=== PATIENT | female | born 1930 | race Hispanic/Latino ===

== ENCOUNTER 2017-11-24 16:23 | Emergency (ER) | payer OTHER ==
[2017-11-24 17:43] LABS: Bicarbonate 30 mEq/L (21-31); Glucose Level 190 mg/dL (65-120); Sodium Level 132 mEq/L (135-145)
[2017-11-24 17:48] LABS: Absolute Lymphocytes (CBC) 1.7 K/uL (0.7-4.9); Absolute Monocytes 0.6 K/uL (0.1-1.3); Absolute Neutrophil 4.4 K/uL (1.8-8.0); Basophils % 0.7 % (0-1.3); Eosinophils % 2.2 % (0-4.4); Lymphocytes % 24.7 % (15.3-44.8); MCH 28.1 pg (27.0-35.0); MCV 87.6 fL (80-100); MPV 8.5 fL (7.6-11.3); Monocytes % 8.3 % (3.3-12.3); RBC Red Blood Cell Count 3.99 M/uL (3.86-4.86)
[2017-11-24 17:49] LABS: ALT/SGPT 12 IU/L (10-60); AST/SGOT 16 IU/L (10-42); Albumin 3.9 g/dL (3.2-5.5); Alkaline Phosphatase 81 IU/L (42-121); BUN Blood Urea Nitrogen 12 mg/dL (6-20); Bilirubin Direct 0.1 mg/dL (0-0.2); Bilirubin Total 0.6 mg/dL (0.3-1.2); Protein, Total 8.1 g/dL (6.0-8.3)
--- NOTE | 2017-11-24 18:42 | RAD REPORT ---
EXAM DESCRIPTION: JANNETExtreaaron Venous Uni Ltd11/24/2017 6:21 pm CLINICAL HISTORY: left leg pain and swelling. COMPARISON: None. FINDINGS: Left common femoral, superficial femoral, popliteal and posterior tibial veins are compre ssible and demonstrate augmentation. Doppler demonstrates good flow. A Riley's cyst measures 3.6 x 1.2 x 2.6 centimeters IMPRESSION: No evidence of deep venous thrombosis involving the left lower extremity. A Riley's cyst measures 3.6 x 1.2 x 2.6 centimeters
--- NOTE | 2017-11-24 19:42 | RAD REPORT ---
EXAM DESCRIPTION: Lindsey Low Left11/24/2017 6:08 pm CLINICAL HISTORY: Left leg pain and swelling FINDINGS: No fracture is seen. No bony destructive lesion is seen. Diffuse edema is present within the subcutaneous tissues
--- NOTE | 2017-11-24 19:44 | RAD REPORT ---
EXAM DESCRIPTION: RAD - Foot Left 3 View - 11/24/2017 6:12 pm CLINICAL HISTORY: Left Foot pain FINDINGS: No fracture or dislocation is seen. No bony destructive lesion is seen. Diffuse edema is present within the subcutaneous tissues. A large plantar calcaneal spur is present. Vascular calcifications are noted.
--- NOTE | 2017-11-24 20:08 | ER ---
Nurse's Notes [facility] Name: Mariah Mora Age: 87 yrs Sex: Female : 1930 Arrival Date: 11/24/2017 Time: 16:27 Bed 16 Private MD: Out, [facility] Diagnosis: Cellulitis of left lower limb Presentation: 11/24 16:31 Presenting complaint: Patient states: Left lower leg swelling and redness that started aj 2 weeks ago. Seen by PCP yesterday and DX with staph infection and started on ABX. Not improved. Transition of care: patient was not received from another setting of care. Onset of symptoms was November 13, 2017. Risk Assessment: Do you want to hurt yourself or someone else? Patient reports no desire to harm self or others. Care prior to arrival: None. 16:31 Method Of Arrival: Ambulatory aj 16:31 Acuity: ANTHONY 3 aj 19:10 Initial Sepsis Screen: Does the patient meet any 2 criteria? No. Patient's initial tl2 sepsis screen is negative. Does the patient have a suspected source of infection? No. Patient's initial sepsis screen is negative. Triage Assessment: 16:35 General: Appears in no apparent distress. comfortable, Behavior is calm, cooperative, aj appropriate for age. Pain: Complains of pain in left leg. Neuro: Level of Consciousness is awake, alert, obeys commands, Oriented to person, place, time, situation, Appropriate for age. Respiratory: Airway is patent Respiratory effort is even, unlabored, Respiratory pattern is regular, symmetrical. Derm: Skin is intact, is healthy with good turgor, Skin is pink, warm \T\ dry. normal. 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 - Social history:: Smoking status: Patient/guardian denies using tobacco. - Ebola Screening: : Patient negative for fever greater than or equal to 101.5 degrees Fahrenheit, and additional compatible Ebola Virus Disease symptoms Patient denies exposure to infectious person Patient denies travel to an Ebola-affected area in the 21 days before illness onset No symptoms or risks identified at this time. Screenin:45 Abuse screen: Denies threats or abuse. Denies injuries from another. Nutritional ch screening: No deficits noted. Tuberculosis screening: No symptoms or risk factors identified. Fall Risk None identified. Assessment: 17:50 Reassessment: Patient appears in no apparent distress at this time. Patient and/or ch family updated on plan of care and expected duration. Pain level reassessed. Patient is alert, oriented x 3, equal unlabored respirations, skin warm/dry/pink. General: Appears in no apparent distress. uncomfortable, Behavior is calm, cooperative, appropriate for age. Pain: Complains of pain in lateral aspect of left calf, left lateral ankle, lateral aspect of left foot, left calf, left Achilles, left heel, medial aspect of left calf, left medial ankle, medial aspect of left foot, left [place], anterior aspect of left ankle and dorsum of left foot Pain currently is 7 out of 10 on a pain scale. Pain began weeks ago. Neuro: No deficits noted. Respiratory: Airway is patent Respiratory effort is even, unlabored, Breath sounds are clear bilaterally. 17:50 GI: No signs and/or symptoms were reported involving the gastrointestinal system. Derm: ch Skin is pink, warm \T\ dry. Rash noted that is pt L lower leg pt has redness and +3 pitting edema, heat to area. pt redness and swelling extends almost to the knee. 18:35 Reassessment: Patient appears in no apparent distress at this time. Patient and/or ch family updated on plan of care and expected duration. Pain level reassessed. Patient is alert, oriented x 3, equal unlabored respirations, skin warm/dry/pink. 19:10 Reassessment: Patient appears in no apparent distress at this time. General: Appears in tl2 no apparent distress. uncomfortable, Behavior is calm, cooperative, appropriate for age. Pain: Complains of pain in left [place] and left calf. Neuro: Level of Consciousness is awake, alert, obeys commands, Oriented to person, place, time, situation. Cardiovascular: Denies chest pain. Cardiovascular: Edema is 3+ to left midcalf pitting to left midcalf. Respiratory: Airway is patent Respiratory effort is even, unlabored, Respiratory pattern is regular, symmetrical. GI: No signs and/or symptoms were reported involving the gastrointestinal system. Derm: Skin is pink, warm \T\ dry. Rash noted that is red. 21:04 Reassessment: Patient appears in no apparent distress at this time. Patient and/or tl2 family updated on plan of care and expected duration. Pain level reassessed. Patient is alert, oriented x 3, equal unlabored respirations, skin warm/dry/pink. Patient is alert/active/playful, equal unlabored respirations, skin warm/dry/pink. Pt verbalized understanding of discharge instructions and need to continue prescribed antibiotics. Vital Signs: 16:35 BP 147 / 59; Pulse 82; Resp 20; Temp 98.5; Pulse Ox 99% on R/A; Weight 69.85 kg; Height aj 5 ft. 3 in. (160.02 cm); 17:45 BP 156 / 62; Pulse 86; Resp 20; Pulse Ox 98% on R/A; Pain 7/10; ch 19:30 BP 178 / 58; Pulse 70; Resp 18; Pulse Ox 98% on R/A; tl2 21:01 BP 173 / 56; Pulse 76; Resp 18; Temp 98(O); Pulse Ox 98% on R/A; tl2 16:35 Body Mass Index 27.28 (69.85 kg, 160.02 cm) ED Course: 16:27 Patient arrived in ED. sb2 16:27 Out, [facility] is Private Physician. sb2 16:32 Triage completed. aj 16:35 Arm band placed on right wrist. Patient placed in an exam room. aj 16:50 Mynor Ramos NP is PHCP. pm1 16:50 Cal Dailey MD is Attending Physician. pm1 17:04 Terese Ascencio, DIANE is Primary Nurse. 17:24 Initial lab(s) drawn, by nj, sent to lab. Inserted saline lock: 22 gauge in left mh5 antecubital area, using aseptic technique. Blood collected. 17:24 Basic Metabolic Panel Sent. 5 17:24 CBC with Diff Sent. 5 17:24 Hepatic Function Sent. [facility] 17:45 No apparent distress. Resting quietly. 17:45 Patient has correct armband on for positive identification. Bed in low position. Call light in reach. Side rails up X 1. Adult w/ patient. Pulse ox on. NIBP on. Warm blanket given. 17:45 No provider procedures requiring assistance completed. 18:06 X-ray completed. Portable x-ray completed in exam room. Patient tolerated procedure bb2 well. 18:06 Tib Fib Left XRAY In Process Unspecified. EDMS 18:06 Foot Left 3 View XRAY In Process Unspecified. EDMS 18:21 Extremity Venous Uni Ltd US In Process Unspecified. EDMS 19:40 Report given to Sherin. 21:04 IV discontinued, intact, bleeding controlled, No redness/swelling at site. Pressure tl2 dressing applied. Administered Medications: No medications were administered Outcome: 20:07 Discharge ordered by MD. pm1 21:04 Discharged to home ambulatory, with family. tl2 21:04 Condition: stable 21:04 Discharge instructions given to patient, family, Instructed on discharge instructions, follow up and referral plans. medication usage, Demonstrated understanding of instructions, follow-up care, medications. 21:05 Patient left the ED. tl2 Signatures: Dispatcher [employer] Terese Mars, RN Estrella Woods ch, RN RN aj Marinas, Patrick, ANGI CRICKET COACH pm1 Sherin Leonardo RN RN 2 Heidi Thompson 5 Sarah Grimes 2 Josiane Cueto 2
--- NOTE | 2017-11-24 20:08 | EDPHYS ---
Physician Documentation [facility] Name: Mariah Mora Age: 87 yrs Sex: Female : 1930 Arrival Date: 11/24/2017 Time: 16:27 Bed 16 Private MD: Out, [facility] ED Physician Cal Dailey HPI: 11/24 17:30 This 87 yrs old Female presents to ER via Ambulatory with complaints of Leg pm1 Swelling. 17:30 The patient presents with cellulitis of the left ankle and [place]. Description: raised. pm1 Onset: The symptoms/episode began/occurred 2 week(s) ago. Possible cause(s): unknown. Associated signs and symptoms: Pertinent negatives: discharge, drainage, fever. Modifying factors: the symptoms are alleviated by nothing, the symptoms are aggravated by touching. Severity of symptoms: in the emergency department the symptoms are unchanged. Patient seen by her doctor yesterday and given a prescription bactrim and clindamycin for cellulitis. Family member concerned that the cellulitis is not better after starting the antibiotics yesterday. 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 - Social history:: Smoking status: Patient/guardian denies using tobacco. - Ebola Screening: : Patient negative for fever greater than or equal to 101.5 degrees Fahrenheit, and additional compatible Ebola Virus Disease symptoms Patient denies exposure to infectious person Patient denies travel to an Ebola-affected area in the 21 days before illness onset No symptoms or risks identified at this time. ROS: 17:30 Constitutional: Negative for fever, chills, and weight loss, Eyes: Negative for injury, pm1 pain, redness, and discharge, ENT: Negative for injury, pain, and discharge, Neck: Negative for injury, pain, and swelling, Cardiovascular: Negative for chest pain, palpitations, and edema, Respiratory: Negative for shortness of breath, cough, wheezing, and pleuritic chest pain, Abdomen/GI: Negative for abdominal pain, nausea, vomiting, diarrhea, and constipation, Back: Negative for injury and pain, : Negative for injury, bleeding, discharge, and swelling. 17:30 MS/Extremity: Negative for injury and deformity. 17:30 Skin: Positive for cellulitis, of the left [place] and left ankle. Exam: 17:30 Constitutional: This is a well developed, well nourished patient who is awake, alert, pm1 and in no acute distress. Head/Face: Normocephalic, atraumatic. Eyes: Pupils equal round and reactive to light, extra-ocular motions intact. Lids and lashes normal. Conjunctiva and sclera are non-icteric and not injected. Cornea within normal limits. Periorbital areas with no swelling, redness, or edema. ENT: Nares patent. No nasal discharge, no septal abnormalities noted. Tympanic membranes are normal and external auditory canals are clear. Oropharynx with no redness, swelling, or masses, exudates, or evidence of obstruction, uvula midline. Mucous membranes moist. Neck: Trachea midline, no thyromegaly or masses palpated, and no cervical lymphadenopathy. Supple, full range of motion without nuchal rigidity, or vertebral point tenderness. No Meningismus. Chest/axilla: Normal chest wall appearance and motion. Nontender with no deformity. No lesions are appreciated. Cardiovascular: Regular rate and rhythm with a normal S1 and S2. No gallops, murmurs, or rubs. No pulse deficits. Respiratory: Lungs have equal breath sounds bilaterally, clear to auscultation and percussion. No rales, rhonchi or wheezes noted. No increased work of breathing, no retractions or nasal flaring. Abdomen/GI: Soft, non-tender, with normal bowel sounds. No distension or tympany. No guarding or rebound. No evidence of tenderness throughout. Back: No spinal tenderness. No costovertebral tenderness. Full range of motion. 17:30 Skin: cellulitis, that is mild, on the left [place] and left ankle. 17:30 Neuro: Orientation: is normal, Motor: moves all fours, strength is normal, strength is 5/5 in all extremities. Vital Signs: 16:35 BP 147 / 59; Pulse 82; Resp 20; Temp 98.5; Pulse Ox 99% on R/A; Weight 69.85 kg; Height aj 5 ft. 3 in. (160.02 cm); 17:45 BP 156 / 62; Pulse 86; Resp 20; Pulse Ox 98% on R/A; Pain 7/10; ch 19:30 BP 178 / 58; Pulse 70; Resp 18; Pulse Ox 98% on R/A; tl2 21:01 BP 173 / 56; Pulse 76; Resp 18; Temp 98(O); Pulse Ox 98% on R/A; tl2 16:35 Body Mass Index 27.28 (69.85 kg, 160.02 cm) aj MDM: 16:55 Patient medically screened. pm1 20:00 ED course: swelling to left lower leg improved with legs elevated. Patient instructed pm1 to continue taking the antibiotics. Patient without fever, WBC normal, and patient has only taken 1 day of antibiotics. Not considered failed outpatient therapy . 20:02 Data reviewed: vital signs. pm1 20:06 Data interpreted: Pulse oximetry: on room air is 98 %. Interpretation: normal. pm1 Counseling: I had a detailed discussion with the patient and/or guardian regarding: the historical points, exam findings, and any diagnostic results supporting the discharge/admit diagnosis, lab results, radiology results, the need for outpatient follow up, to return to the emergency department if symptoms worsen or persist or if there are any questions or concerns that arise at home. 11/24 17:03 Order name: Basic Metabolic Panel; Complete Time: 17:59 pm1 11/24 17:03 Order name: CBC with Diff; Complete Time: 17:59 pm1 11/24 17:03 Order name: Hepatic Function; Complete Time: 17:59 pm1 11/24 17:03 Order name: Extremity Venous Uni Ltd US; Complete Time: 18:48 pm1 11/24 17:03 Order name: Tib Fib Left XRAY; Complete Time: 19:46 pm1 11/24 17:03 Order name: Foot Left 3 View XRAY; Complete Time: 19:46 pm1 11/24 17:03 Order name: IV Saline Lock; Complete Time: 17:25 pm1 11/24 17:03 Order name: Labs collected and sent; Complete Time: 17:25 pm1 11/24 17:03 Order name: Urine Dipstick-Ancillary (obtain specimen); Complete Time: 19:52 pm1 Administered Medications: No medications were administered Disposition: 11/25 07:07 Co-signature as Attending Physician, Cal Dailey MD. rn Disposition: 11/24/17 20:07 Discharged to Home. Impression: Cellulitis of left lower limb. - Condition is Stable. - Discharge Instructions: Cellulitis. - SBAR form, Medication Reconciliation Form, Thank You Letter, Antibiotic Education form. - Follow up: Emergency Department; When: As needed; Reason: Worsening of condition. Follow up: Private Physician; When: 2 - 3 days; Reason: Recheck today's complaints, Continuance of care, Re-evaluation by your physician. - Problem is new. - Symptoms have improved. - Notes: Continue taking the bactrim and clindamycin that were prescribed to you yesterday Signatures: Dispatcher [employer] EDEstrella Luna RN Cal Norwood MD MD rn Marinas, Patrick, ANGI INTERVENTIONAL NURSE pm1 Sherin Leonardo RN RN tl2 Corrections: (The following items were deleted from the chart) 11/24 21:05 20:07 11/24/2017 20:07 Discharged to Home. Impression: Cellulitis of left lower limb. tl2 Condition is Stable. Forms are SBAR form, Medication Reconciliation Form, Thank You Letter, Antibiotic Education, Prescription Opioid Use. Follow up: Emergency Department; When: As needed; Reason: Worsening of condition. Follow up: Private Physician; When: 2 - 3 days; Reason: Recheck today's complaints, Continuance of care, Re-evaluation by your physician. Problem is new. Symptoms have improved. pm1
== END 2017-11-24 21:05 | disposition home or self-care (01) ==
LOC: ER 16:23
DX: L03.116 Cellulitis of left lower limb (principal); E11.9 Type 2 diabetes mellitus without complications; I10 Essential (primary) hypertension
CPT/HCPCS: 36415; 80048; 80076; 85025; 93971; 99284